=== PATIENT | male | born 1965 | race Two or more races ===

== ENCOUNTER 2024-12-16 10:10 | Outpatient (CLI) | payer OTHER ==
[2024-12-16 11:11] LABS: Hematocrit 43.1 % (41.0-53.0); Hemoglobin 14.7 g/dL (13.5-17.5); Mean Corpuscular Hemoglobin 32.0 pg (28.0-32.0); Mean Corpuscular Volume 94.0 fL (80.0-100.0); Nucleated Red Blood Cells % 0.0 %
[2024-12-16 11:22] LABS: Urine Protein, UAD Negative (Negative)
[2024-12-16 11:31] LABS: Alanine Aminotransferase 11 U/L (7-40); Albumin 4.4 g/dL (3.2-4.8); Alkaline Phosphatase 69 U/L (46-116); Anion Gap 8 (5-15); BUN/Creatinine Ratio 12.9 (10.0-20.0); Blood Urea Nitrogen 13 mg/dL (9-23); Calcium 9.8 mg/dL (8.7-10.4); Carbon Dioxide 25 mmol/L (20-31); Chloride 108 mmol/L (98-107); Cholesterol 195 mg/dL (< 200); Glucose 106 mg/dL (74-106); HDL Cholesterol 46 mg/dL (40-59); Magnesium 2.1 mg/dL (1.6-2.6); Potassium 4.1 mmol/L (3.5-5.1); Sodium 141 mmol/L (136-145); Total Protein 6.7 g/dL (5.7-8.2); Triglycerides 111 mg/dL (< 150)
[2024-12-16 11:32] LABS: Bilirubin, Total 0.3 mg/dL (0.2-1.0)
[2024-12-16 11:50] LABS: Uric Acid 6.2 mg/dL (3.7-9.2)
[2024-12-17 08:07] LABS: Prostate Specific Antigen 1.9 ng/mL (0.0-4.0)
== END 2024-12-16 19:36 | disposition home or self-care (01) ==
LOC: LAB 10:10
PROVIDERS: ATTEND Internal Medicine
DX: E78.5 Hyperlipidemia, unspecified (principal); E55.9 Vitamin D deficiency, unspecified; K21.9 Gastro-esophageal reflux disease without esophagitis; R73.09 Other abnormal glucose; G47.30 Sleep apnea, unspecified; Z12.5 Encounter for screening for malignant neoplasm of prostate; Z13.31 Encounter for screening for depression
CPT/HCPCS: 36415; 80053; 80061; 81001; 82306; 82607; 82746; 83036; 83735; 84154; 84550; 85025; 87086

== ENCOUNTER 2025-04-23 10:56 | Outpatient (CLI) | payer OTHER ==
[2025-04-23 12:07] LABS: Triglycerides 79 mg/dL (< 150)
[2025-04-23 12:09] LABS: Cholesterol 197 mg/dL (< 200); HDL Cholesterol 60 mg/dL (40-59)
[2025-04-23 12:13] LABS: Free T3 3.27 pg/mL (2.3-4.2); Free T4 (Free Thyroxine) 1.24 ng/dL (0.89-1.76)
== END 2025-04-23 17:00 | disposition home or self-care (01) ==
LOC: LAB 10:56
PROVIDERS: ATTEND Internal Medicine
DX: R94.6 Abnormal results of thyroid function studies (principal); Z13.220 Encounter for screening for lipoid disorders
CPT/HCPCS: 36415; 80061; 84439; 84443; 84480; 84481